=== PATIENT | female | born 2005 | race Caucasian/White ===

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

== ENCOUNTER 2023-05-22 15:49 | Emergency (ER) | payer MEDICAID, OTHER ==
[2023-05-22 16:29] VITALS: RESP 18; TEMP 98
[2023-05-22] MEDS ORDERED: Zofran 4 MG/2 ML VIAL IV ONE (16:32)
[2023-05-22] MEDS ORDERED: TORAdol 30 mg Injection IV ONE (16:32)
[2023-05-22] MEDS ORDERED: Sodium Chloride 0.9% 1000 ML 1,000 ML IV STA (16:32)
[2023-05-22 16:50] LABS: HCG URINE TEST NEGATIVE (NEGATIVE)
[2023-05-22] MEDS ORDERED: TORAdol 30 mg Injection ONE (16:50)
[2023-05-22] MEDS ORDERED: Zofran 4 MG/2 ML VIAL ONE (16:50)
[2023-05-22] MEDS ORDERED: Sodium Chloride 0.9% 1000 ML 1,000 ML ONE (16:50)
[2023-05-22 16:53] LABS: Absolute Neutrophil Ct (ANC) 7.87 x10^3/uL (1.4-6.9); BASOPHIL % 0.3 % (0.0-0.4); Basophil (Absolute #) 0.04 x10^3/uL (0-0.4); Eosinophil % 1.7 % (0.00-5.0); Eosinophil (Absolute #) 0.21 x10^3/uL (0-0.5); Hematocrit 41.7 % (35-47); Hemoglobin 14.6 g/dL (12.0-16.0); IMMATURE GRAN # 0.05 x10^3u/L (0.00-0.03); IMMATURE GRAN % 0.4 % (0.00-0.4); Lymphocyte (Absolute #) 3.31 x10^3/uL (1.0-4.6); Lymphocytes % 26.9 % (24.0-44.0); Mean Cell Volume 91.9 fL (78-100); Mean Corpuscular Hemoglobin 32.2 pg (26-32); Mean Platelet Volume 9.1 fL (7.5-11.0); Monocyte (Absolute #) 0.81 x10^3/uL (0.0-1.3); Monocytes % 6.6 % (0.0-12.0); Neutrophil % 64.1 % (36.0-66.0); Platelet Count 331 x10^3/uL (150-450); Red Blood Count 4.54 x10^6/uL (4.1-5.4); Red Cell Distribution Width 11.3 % (11.5-14.0); White Blood Count 12.3 x10^3/uL (4.0-10.5)
[2023-05-22 17:09] LABS: ALBUMIN 5.1 g/dL (3.5-5.0); ALKALINE PHOSPHATASE 86 U/L (38-126); ANION GAP 16.3 MEQ/L (5-15); BLOOD UREA NITROGEN 11 mg/dL (7-17); CHLORIDE 103 mmol/L (98-107); Calcium 9.8 mg/dL (8.4-10.2); Carbon Dioxide 25 mmol/L (22-30); Creatinine 1 0.66 mg/dL (0.52-1.04); EST GLOMERULAR FILTRATION RATE > 60.0 ML/MIN; Glucose 97 mg/dL (74-106); LIPASE 179 U/L (23-300); Potassium 3.8 mmol/L (3.5-5.1); SGOT/AST 38 U/L (14-36); SGPT/ALT 40 U/L (0-35); SODIUM 140 mmol/L (137-145); Total Protein 8.1 g/dL (6.3-8.2)
[2023-05-22 17:10] LABS: Appearance Cloudy (Clear); Bacteria Moderate /HPF (None Seen); Bilirubin Negative (Negative); Blood Negative (Negative); Epithelial Cells Moderate /HPF (None Seen); Glucose, Urine Negative (Negative); Hyaline Casts NONE SEEN /LPF (0-2); Ketones 15 (Negative); Leukocyte Esterase Negative (Negative); Nitrite Negative (Negative); Ph 6.5 (4.6-8.0); Protein,Urine Dip Negative (Negative); Specific Gravity 1.025 (1.005-1.030); Urobilinogen 0.2 mg/dL (0.2)
[2023-05-22 17:11] LABS: ADD URINE CULTURE? YES (NO)
--- NOTE | 2023-05-22 17:14 | XRAY ---
Indication: Lower abdomen pain and diarrhea 1 week. Multiple contiguous axial images obtained through the abdomen and pelvis without contrast. Comparison: None Lung bases clear. Heart not enlarged. Stomach distended with food/fluid. Noncontrasted stomach and bowel loops nonobstructed with normal appendix. No free fluid/air. Liver demonstrates mild diffuse fatty attenuation with incidental Marcin lobe. Remaining liver, gallbladder, pancreas, spleen, adrenal glands, kidneys, ureters, bladder, uterus, and aorta are unremarkable for noncontrast exam. Osseous structures intact. No ventral or inguinal hernias. Impression: Fatty liver. Remaining CT abdomen/pelvis without contrast exam is negative.
[2023-05-22 17:23] VITALS: PULSE 93
[2023-05-22] MEDS ORDERED: KEFLEX 500 MG PO ONE (17:55)
--- NOTE | 2023-05-22 18:00 | ERPHSYRPT ---
- History of Present Illness Time Seen by Provider: 05/22/23 15:55 Historian: patient, family Patient Subjective Stated Complaint: abdominal pain that comes and goes Triage Nursing Assessment: Patient reports intermittent lower abdominal pain which radiates down bilateral legs. Patient reports pain 5/10 at this time. Patient states her last bowel movement was yesterday and that it was loose and has been for the last week or so. Patient also states that her last menstrual period ended last week and that she had abnormally heavy bleeding and cramps. Patient states she does not know if she has ran a temperature but she has had sweats and chills. Physician History: 17 years old with history of schizoaffective disorder presented in the ER with chief complaint of generalized abdominal pain more in the lower abdomen with associated nausea and dry heaving. This has been going on for almost 1 week, off-and-on, moderate intensity cramping to sharp nature without any significant aggravating or relieving factors. Does report increased urinary frequency but no hematuria urgency or hesitancy reported. Denies any fever or chills. Allergies/Adverse Reactions: sulfamethoxazole [From Bactrim] Allergy (Verified 05/22/23 15:59) trimethoprim [From Bactrim] Allergy (Verified 05/22/23 15:59) Home Medications: Atomoxetine HCl [Strattera] 40 mg PO DAILY 04/17/18 [History] Cariprazine HCl [Vraylar] 6 mg PO HS 11/14/22 [History] PARoxetine HCL [Paxil] 40 mg PO HS 11/14/22 [History] Omeprazole 20 mg PO HS 05/22/23 [History] Trazodone HCl 50 mg [Desyrel 50 mg] 25 mg PO HS 05/22/23 [History] hydrOXYzine HCL [Hydroxyzine HCl] 10 mg PO Q4H PRN 05/22/23 [History] Hx Tetanus, Diphtheria Vaccination/Date Given: Yes Hx Influenza Vaccination/Date Given: No Hx Pneumococcal Vaccination/Date Given: No Travel Risk - International Travel Have you traveled outside of the country in past 3 weeks: No - Coronavirus Screening Are you exhibiting any of the following symptoms?: No Close contact with a COVID-19 positive Pt in past 14-21 Days: No - Vaccine Status Have you recieved a Covid-19 vaccination: Yes Cement Contractor: Unknown - Vaccination Dates Dates if Unknown: unknown - Review of Systems Constitutional: No Symptoms Eyes: No Symptoms Ears, Nose, & Throat: No Symptoms Respiratory: No Symptoms Cardiac: No Symptoms Abdominal/Gastrointestinal: Abdominal Pain, Nausea Musculoskeletal: No Symptoms Skin: No Symptoms Neurological: No Symptoms Hematologic/Lymphatic: No Symptoms Immunological/Allergic: No Symptoms - Past Medical History Pertinent Past Medical History: Yes Neurological History: Seizures ENT History: No Pertinent History Cardiac History: No Pertinent History Respiratory History: Asthma Endocrine Medical History: No Pertinent History Musculoskeletal History: No Pertinent History GI Medical History: No Pertinent History History: No Pertinent History Psycho-Social History: Anxiety, Attention Deficit Disorder, Bipolar, Depression Female Reproductive Disorders: No Pertinent History Other Medical History: social anxiety - Past Surgical History Past Surgical History: No Neuro Surgical History: No Pertinent History Cardiac: No Pertinent History Respiratory: No Pertinent History Gastrointestinal: No Pertinent History Genitourinary: No Pertinent History Musculoskeletal: No Pertinent History Female Surgical History: No Pertinent History - Social History Smoking Status: Never smoker Exposure to second hand smoke: Yes Drug Use: none Patient Lives Alone: No - Female History Hx Now: (UNKN) - Nursing Vital Signs Nursing Vital Signs: Initial Vital Signs Temperature 98.0 F 05/22/23 16:06 Pulse Rate 110 H 05/22/23 16:06 Respiratory Rate 18 05/22/23 16:06 Blood Pressure 142/105 05/22/23 16:06 O2 Sat by Pulse Oximetry 96 05/22/23 16:06 Pain Scale Pain Intensity 5 - Physical Exam General Appearance: no apparent distress Eye Exam: PERRL/EOMI Ears, Nose, Throat Exam: normal ENT inspection Neck Exam: normal inspection, full range of motion Respiratory Exam: normal breath sounds, lungs clear, respiratory distress Cardiovascular Exam: normal heart sounds, tachycardia Gastrointestinal/Abdomen Exam: soft, normal bowel sounds, tenderness (Lower abdomen to deep palpation bilaterally) Back Exam: normal inspection Extremity Exam: normal inspection, normal range of motion Neurologic Exam: alert, oriented x 3 Skin Exam: normal color SpO2 Interpretation: normal SpO2: 97 O2 Delivery: Room Air Ordered Tests: Active Orders 24 hr Category Date Time Status IV Insertion STAT Care 05/22/23 16:32 Active NPO (ED) STAT Care 05/22/23 16:32 Active ABDOMEN AND PELVIS W/0 CONTRAS [CT] Stat Exams 05/22/23 16:32 Completed CBC W DIFF Stat Lab 05/22/23 16:45 Completed CMP Stat Lab 05/22/23 16:45 Completed CULTURE,URINE Stat Lab 05/22/23 16:35 Received HCG QUALITATIVE, URINE Stat Lab 05/22/23 16:35 Completed LIPASE Stat Lab 05/22/23 16:45 Completed UA W/RFX UR CULTURE Stat Lab 05/22/23 16:35 Completed Medication Summary Discontinued Medications Generic Name Dose Route Start Last Admin Trade Name Charlie PRN Reason Stop Dose Admin Sodium Chloride 1,000 mls @ 999 mls/hr 05/22/23 16:32 05/22/23 16:52 Sodium Chloride 0.9% 1000 Ml IV 05/22/23 17:32 999 mls/hr .Q1H1M STA Administration Sodium Chloride Confirm 05/22/23 16:50 Sodium Chloride 0.9% 1000 Ml Administered 05/22/23 16:51 Dose 1,000 mls @ ud .ROUTE .STK-MED ONE Ketorolac Tromethamine 30 mg 05/22/23 16:32 05/22/23 16:52 Ketorolac Tromethamine 30 Mg/Ml Inj IV 05/22/23 16:33 30 mg STAT ONE Administration Ketorolac Tromethamine Confirm 05/22/23 16:50 Ketorolac Tromethamine 30 Mg/Ml Inj Administered 05/22/23 16:51 Dose 30 mg .ROUTE .STK-MED ONE Ondansetron HCl 4 mg 05/22/23 16:32 05/22/23 16:52 Ondansetron Hcl 4 Mg/2 Ml Vial IV 05/22/23 16:33 4 mg STAT ONE Administration Ondansetron HCl Confirm 05/22/23 16:50 Ondansetron Hcl 4 Mg/2 Ml Vial Administered 05/22/23 16:51 Dose 4 mg .ROUTE .STK-MED ONE Lab/Rad Data: Laboratory Result Diagrams 05/22/23 16:45 05/22/23 16:45 Laboratory Results 05/22/23 05/22/23 05/22/23 Range/Units 16:45 16:45 16:35 WBC 12.3 H (4.0-10.5) x10^3/uL RBC 4.54 (4.1-5.4) x10^6/uL Hgb 14.6 (12.0-16.0) g/dL Hct 41.7 (35-47) % MCV 91.9 (78-100) fL MCH 32.2 H (26-32) pg MCHC 35.0 (32-36) g/dL RDW 11.3 L (11.5-14.0) % Plt Count 331 (150-450) x10^3/uL MPV 9.1 (7.5-11.0) fL Gran % 64.1 (36.0-66.0) % Immature Gran % (Auto) 0.4 (0.00-0.4) % Nucleat RBC Rel Count 0.0 (0.00-0.1) % Eos # (Auto) 0.21 (0-0.5) x10^3/uL Immature Gran # (Auto) 0.05 H (0.00-0.03) x10^3u/L Absolute Lymphs (auto) 3.31 (1.0-4.6) x10^3/uL Absolute Monos (auto) 0.81 (0.0-1.3) x10^3/uL Absolute Nucleated RBC 0.00 (0.00-0.01) x10^3u/L Lymphocytes % 26.9 (24.0-44.0) % Monocytes % 6.6 (0.0-12.0) % Eosinophils % 1.7 (0.00-5.0) % Basophils % 0.3 (0.0-0.4) % Absolute Granulocytes 7.87 H (1.4-6.9) x10^3/uL Basophils # 0.04 (0-0.4) x10^3/uL Sodium 140 (137-145) mmol/L Potassium 3.8 (3.5-5.1) mmol/L Chloride 103 (98-107) mmol/L Carbon Dioxide 25 (22-30) mmol/L Anion Gap 16.3 H (5-15) MEQ/L BUN 11 (7-17) mg/dL Creatinine 0.66 (0.52-1.04) mg/dL Estimated GFR > 60.0 ML/MIN Glucose 97 (74-106) mg/dL Calcium 9.8 (8.4-10.2) mg/dL Total Bilirubin 0.30 (0.2-1.3) mg/dL AST 38 H (14-36) U/L ALT 40 H (0-35) U/L Alkaline Phosphatase 86 (38-126) U/L Serum Total Protein 8.1 (6.3-8.2) g/dL Albumin 5.1 H (3.5-5.0) g/dL Lipase 179 (23-300) U/L Urine Color (Yellow) Urine Appearance (Clear) Urine pH (4.6-8.0) Ur Specific [place] (1.005-1.030) Urine Protein (Negative) Urine Glucose (UA) (Negative) mg/dL Urine Ketones (Negative) Urine Blood (Negative) Urine Nitrite (Negative) Urine Bilirubin (Negative) Urine Urobilinogen (0.2) mg/dL Ur Leukocyte Esterase (Negative) U Hyaline Cast (Auto) (0-2) /LPF Urine Microscopic RBC (0-5) /HPF Urine Microscopic WBC (0-5) /HPF Ur Epithelial Cells (None Seen) /HPF Urine Bacteria (None Seen) /HPF Urine Culture Reflexed (NO) Urine HCG, Qual NEGATIVE (NEGATIVE) 05/22/23 Range/Units 16:35 WBC (4.0-10.5) x10^3/uL RBC (4.1-5.4) x10^6/uL Hgb (12.0-16.0) g/dL Hct (35-47) % MCV (78-100) fL MCH (26-32) pg MCHC (32-36) g/dL RDW (11.5-14.0) % Plt Count (150-450) x10^3/uL MPV (7.5-11.0) fL Gran % (36.0-66.0) % Immature Gran % (Auto) (0.00-0.4) % Nucleat RBC Rel Count (0.00-0.1) % Eos # (Auto) (0-0.5) x10^3/uL Immature Gran # (Auto) (0.00-0.03) x10^3u/L Absolute Lymphs (auto) (1.0-4.6) x10^3/uL Absolute Monos (auto) (0.0-1.3) x10^3/uL Absolute Nucleated RBC (0.00-0.01) x10^3u/L Lymphocytes % (24.0-44.0) % Monocytes % (0.0-12.0) % Eosinophils % (0.00-5.0) % Basophils % (0.0-0.4) % Absolute Granulocytes (1.4-6.9) x10^3/uL Basophils # (0-0.4) x10^3/uL Sodium (137-145) mmol/L Potassium (3.5-5.1) mmol/L Chloride (98-107) mmol/L Carbon Dioxide (22-30) mmol/L Anion Gap (5-15) MEQ/L BUN (7-17) mg/dL Creatinine (0.52-1.04) mg/dL Estimated GFR ML/MIN Glucose (74-106) mg/dL Calcium (8.4-10.2) mg/dL Total Bilirubin (0.2-1.3) mg/dL AST (14-36) U/L ALT (0-35) U/L Alkaline Phosphatase (38-126) U/L Serum Total Protein (6.3-8.2) g/dL Albumin (3.5-5.0) g/dL Lipase (23-300) U/L Urine Color Yellow (Yellow) Urine Appearance Cloudy A (Clear) Urine pH 6.5 (4.6-8.0) Ur Specific [place] 1.025 (1.005-1.030) Urine Protein Negative (Negative) Urine Glucose (UA) Negative (Negative) mg/dL Urine Ketones 15 A (Negative) Urine Blood Negative (Negative) Urine Nitrite Negative (Negative) Urine Bilirubin Negative (Negative) Urine Urobilinogen 0.2 (0.2) mg/dL Ur Leukocyte Esterase Negative (Negative) U Hyaline Cast (Auto) NONE SEEN (0-2) /LPF Urine Microscopic RBC 6-10 A (0-5) /HPF Urine Microscopic WBC 6-10 A (0-5) /HPF Ur Epithelial Cells Moderate A (None Seen) /HPF Urine Bacteria Moderate A (None Seen) /HPF Urine Culture Reflexed YES (NO) Urine HCG, Qual (NEGATIVE) - Progress Progress: improved Progress Note: 05/22/23 18:01 17 years old with history of schizoaffective disorder presented in the ER with chief complaint of generalized abdominal pain more in the lower abdomen with associated nausea and dry heaving. This has been going on for almost 1 week, off-and-on, moderate intensity cramping to sharp nature without any significant aggravating or relieving factors. Does report increased urinary frequency but no hematuria urgency or hesitancy reported. Denies any fever or chills. Patient has tenderness to deep palpation in bilateral lower abdomen with some tenderness suprapubic area. She is given fluids and Toradol for symptomatic relief, on reevaluation her pain is resolved. No peritoneal signs on repeated evaluation. Acute abdomen work-up showed mildly elevated white count of 12, fairly unremarkable chemistries. Mildly elevated transaminases and questionable UTI on the UA but patient does have symptoms, will treat with Keflex. CT abdomen pelvis is essentially unremarkable except for fatty liver. I do not know the exact cause of her pain, patient did report having loose stool for the last few days, could have some element of gastroenteritis causing her symptoms. Does not have any emergent findings on the work-up. She is being discharged with outpatient follow-up. Discussed signs symptoms of worsening needing return to ER which patient/mom seem understanding. Counseled pt/family regarding: lab results, diagnosis, need for follow-up, rad results Medical Desision Making - Independent Historian Additional History obtained from: Mother - Diagnostic Testing Diagnostic test were ordered, analyzed, and reviewed by me: Yes Radiological Interpretation: Reviewed by me - Risk of complications The pt has a mod risk of morbidity or mortality based on: Need for prescription drug management - Departure Departure Disposition: Home Clinical Impression: Lower abdominal pain, Acute UTI (urinary tract infection) Condition: Stable Critical Care Time: No Referrals: MAICO NEAL [Primary Care Provider] - Follow up with PCP 1 day Instructions: Severe Abdominal Pain, Adult (DC) Additional Instructions: Drink plenty of fluids to keep yourself well-hydrated. Follow-up with primary care for reevaluation. Return to ER for intractable abdominal pain/fever chills or if having difficulty urination Etc. Prescriptions: Cephalexin Mh 500 mg [Keflex 500 mg] 500 mg PO TID #21 cap
[2023-05-22] MEDS ORDERED: KEFLEX 500 MG ONE (18:06)
[2023-05-22 18:16] VITALS: BP 126/92; O2SAT 99
== END 2023-05-22 18:19 | disposition home or self-care (01) ==
LOC: ED 15:49
DX: N39.0 Urinary tract infection, site not specified (principal); R10.30 Lower abdominal pain, unspecified; R35.0 Frequency of micturition; Z79.899 Other long term (current) drug therapy
CPT/HCPCS: 36000; 36415; 74176; 80053; 81001; 81025; 83690; 85025; 87086; 96360; 96374; 96375; 99284; J1885; J2405; A9270-GY

== ENCOUNTER 2023-11-09 22:48 | Emergency (ER) | payer OTHER ==
[2023-11-09 23:43] VITALS: TEMP 98.1; O2SAT 98
--- NOTE | 2023-11-10 00:15 | ERPHSYRPT ---
- History of Present Illness Time Seen by Provider: 11/09/23 23:50 Patient Subjective Stated Complaint: I stuck a bandaid on the end of a paintbrush handle and was masterbating with it and the bandaid got stuck. It is scratching and hurting my pee hole. Triage Nursing Assessment: Vaginal area visually observed with verbal permission stated by pt with mother at bedside also per pt permission. Red circular spot to right labia. No bandaid visualized. Minimal white discharge present. Physician History: 17yo f w/ hx of schizophrenia, anxiety, developmental delay presents w/ mother for foreign body in vagina. Pt states that she was using a small paint brush handle with a small bandaid on the end to masturbate, pt states she was sticking the handle and bandaid into her urethra, believes the bandaid is now stuck in her urethra or vagina. Pt admits to some burning sensation in her pubic region. Mother reports pt has hx of masturbating w/ random objects. Pt currently denies cp, n/v/abdominal pain. Timing/Duration: today Activites at Onset: sexual activity Quality: burning Onset Location: vaginal, urethral Pain Radiation: none Severity of Pain-Max: mild Severity of Pain-Current: mild Prior abdominal problems: none Sexual intercourse history: other (masturbates frequently) Modifying Factors: Improves With: nothing Associated Symptoms: dysuria, No abdominal pain, No fever, No nausea, No loss of bladder control Allergies/Adverse Reactions: Sulfa (Sulfonamide Antibiotics) Allergy (Mild, Verified 11/09/23 23:24) Hives sulfamethoxazole [From Bactrim] Allergy (Mild, Verified 11/09/23 23:24) Hives trimethoprim [From Bactrim] Allergy (Mild, Verified 11/09/23 23:24) Hives Home Medications: Cariprazine HCl [Vraylar] 6 mg PO HS 11/14/22 [History] PARoxetine HCL [Paxil] 40 mg PO HS 11/14/22 [History] Omeprazole 20 mg PO HS 05/22/23 [History] Trazodone HCl 50 mg [Desyrel 50 mg] 25 mg PO HS 05/22/23 [History] hydrOXYzine HCL [Hydroxyzine HCl] 10 mg PO Q4H PRN PRN 05/22/23 [History] Viloxazine HCl [Qelbree] 200 mg PO QHS 11/09/23 [History] Hx Tetanus, Diphtheria Vaccination/Date Given: Yes Hx Influenza Vaccination/Date Given: No Hx Pneumococcal Vaccination/Date Given: No Travel Risk - International Travel Have you traveled outside of the country in past 3 weeks: No - Coronavirus Screening Are you exhibiting any of the following symptoms?: Yes Symptoms: Cough: New Onset, Shortness of Breath, Vomiting/Diarrhea, Headaches/Body Aches/Fatigue Close contact with a COVID-19 positive Pt in past 14-21 Days: No - Vaccine Status Have you recieved a Covid-19 vaccination: Yes Night Club Manager: Unknown - Vaccination Dates Dates if Unknown: unknown - Review of Systems Constitutional: No Symptoms Respiratory: No Symptoms Cardiac: No Symptoms Abdominal/Gastrointestinal: No Symptoms Genitourinary Symptoms: Dysuria, Urinary Retention - Past Medical History Pertinent Past Medical History: Yes Neurological History: Other ENT History: No Pertinent History Cardiac History: No Pertinent History Respiratory History: Asthma Endocrine Medical History: No Pertinent History Musculoskeletal History: No Pertinent History GI Medical History: No Pertinent History History: No Pertinent History Psycho-Social History: Anxiety, Attention Deficit Disorder, Bipolar, Depression, Panic Disorder, Other Female Reproductive Disorders: No Pertinent History Other Medical History: 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, OCD, schizophrenia - Past Surgical History Past Surgical History: No Neuro Surgical History: No Pertinent History Cardiac: No Pertinent History Respiratory: No Pertinent History Gastrointestinal: No Pertinent History Genitourinary: No Pertinent History Musculoskeletal: No Pertinent History Female Surgical History: No Pertinent History - Social History Smoking Status: Never smoker Exposure to second hand smoke: Yes Drug Use: none Patient Lives Alone: No - Female History Hx Now: No - Nursing Vital Signs Nursing Vital Signs: Initial Vital Signs Temperature 98.1 F 11/09/23 23:28 Pulse Rate 107 H 11/09/23 23:28 Respiratory Rate 18 11/09/23 23:28 Blood Pressure 118/101 11/09/23 23:28 O2 Sat by Pulse Oximetry 98 11/09/23 23:28 Pain Scale Pain Intensity 8 - Physical Exam General Appearance: no apparent distress Respiratory Exam: normal breath sounds, No respiratory distress Cardiovascular Exam: regular rate/rhythm Pelvic Exam: normal external exam, other (unable to locate bandaid on speculum exam, urethra showed no obvious foreign body) SpO2 Interpretation: normal SpO2: 98 O2 Delivery: Room Air - Progress Progress: improved Air Movement: fair Progress Note: 11/10/23 00:09 pt went to urinate in restroom into sterile hat, pt called us into bathroom and stated that she had "peed out the bandaid," there was a small bandage present in hat w/ urine. Pt reported feeling much better, states that she does have some irritation still. Urine was flushed down toilet plan to dc home w/ PCP f/u recommend checking UA as pt stated the bandaid was located in urethra mother and pt requesting to go home return to ED if pt starts having painful urination, fevers, johnny blood in urine Blood Culture(s) Obtained: No Antibiotics given: No Counseled pt/family regarding: need for follow-up Medical Desision Making - Risk of complications Minimal Risk: Minimal risk of morbidity - Departure Departure Disposition: Home Clinical Impression: Foreign body in urethra, initial encounter Condition: Stable Critical Care Time: No Referrals: MAICO NEAL [Primary Care Provider] - Follow up/PCP as directed Instructions: Vaginal Foreign Body Additional Instructions: plan to dc home w/ PCP f/u recommend checking UA as pt stated the bandaid was located in urethra mother and pt requesting to go home return to ED if pt starts having painful urination, fevers, johnny blood in urine
[2023-11-10 00:24] VITALS: BP 100/86; PULSE 95; RESP 20
== END 2023-11-10 00:31 | disposition home or self-care (01) ==
LOC: ED 22:48
DX: T19.0XXA Foreign body in urethra, initial encounter (principal); W44.8XXA Other foreign body entering into or through a natural orifice, initial encounter; R10.2 Pelvic and perineal pain; Z79.899 Other long term (current) drug therapy
CPT/HCPCS: 99281

== ENCOUNTER 2024-05-19 17:02 | Emergency (ER) | payer MEDICARE ==
[2024-05-19 17:13] VITALS: TEMP 97
--- NOTE | 2024-05-19 18:11 | ERPHSYRPT ---
- History of Present Illness Time Seen by Provider: 05/19/24 17:30 Source: patient Exam Limitations: no limitations Patient Subjective Stated Complaint: pt here for multi co's. mother called ems for pt not able to move her legs today. she states she went bowling today, she also states she has vomited today and cant move legs Triage Nursing Assessment: pt arrived per ems, alert, she is a poor historian, and her mom is her main caregiver, resp easy, skin w/d/p. pt able to move left leg Timing/Duration: today Severity: mild Associated Symptoms: denies symptoms Allergies/Adverse Reactions: Sulfa (Sulfonamide Antibiotics) Allergy (Mild, Verified 05/19/24 17:04) Hives sulfamethoxazole [From Bactrim] Allergy (Mild, Verified 05/19/24 17:04) Hives trimethoprim [From Bactrim] Allergy (Mild, Verified 05/19/24 17:04) Hives Home Medications: Cariprazine HCl [Vraylar] 6 mg PO HS 11/14/22 [History] Viloxazine HCl [Qelbree] 200 mg PO QHS 11/09/23 [History] Famotidine 20 mg [Pepcid 20 MG] 20 mg PO DAILY 05/19/24 [History] Fenofibrate 160 mg PO DAILY 05/19/24 [History] Guanfacine HCl [Guanfacine HCl ER] 1 mg PO DAILY 05/19/24 [History] Hx Tetanus, Diphtheria Vaccination/Date Given: Yes Hx Influenza Vaccination/Date Given: No Hx Pneumococcal Vaccination/Date Given: No Immunizations Up to Date: Yes Travel Risk - International Travel Have you traveled outside of the country in past 3 weeks: No - Emerging Infectious Disease Are you exhibiting symptoms associated with any current EIDs: No - Review of Systems Eyes: No Symptoms Ears, Nose, & Throat: No Symptoms Respiratory: No Symptoms Cardiac: No Symptoms Abdominal/Gastrointestinal: No Symptoms Genitourinary Symptoms: No Symptoms Musculoskeletal: No Symptoms Skin: No Symptoms Neurological: No Symptoms Psychological: No Symptoms Endocrine: No Symptoms Hematologic/Lymphatic: No Symptoms Immunological/Allergic: No Symptoms - Past Medical History Pertinent Past Medical History: Yes Neurological History: Other ENT History: No Pertinent History Cardiac History: No Pertinent History Respiratory History: Asthma Endocrine Medical History: No Pertinent History Musculoskeletal History: No Pertinent History GI Medical History: No Pertinent History History: No Pertinent History Psycho-Social History: Anxiety, Attention Deficit Disorder, Bipolar, Depression, Panic Disorder, Other Female Reproductive Disorders: No Pertinent History Other Medical History: 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, OCD, schizophrenia - Past Surgical History Past Surgical History: No Neuro Surgical History: No Pertinent History Cardiac: No Pertinent History Respiratory: No Pertinent History Gastrointestinal: No Pertinent History Genitourinary: No Pertinent History Musculoskeletal: No Pertinent History Female Surgical History: No Pertinent History - Female History Hx Last Menstrual Period: now Hx Now: No - Social History Smoking Status: Never smoker Exposure to second hand smoke: Yes Drug Use: none Patient Lives Alone: No - Social Determinants of Health Will the patient participate in the screening: Unable to obtain Comment: pt is mentally disabled - Nursing Vital Signs Nursing Vital Signs: Initial Vital Signs Temperature 97.0 F 05/19/24 17:13 Pulse Rate 110 H 05/19/24 17:13 Respiratory Rate 20 05/19/24 17:13 Blood Pressure 136/93 05/19/24 17:13 O2 Sat by Pulse Oximetry 99 05/19/24 17:13 Pain Scale Pain Intensity 4 - Physical Exam General Appearance: no apparent distress Eye Exam: PERRL/EOMI Ears, Nose, Throat Exam: normal ENT inspection Neck Exam: normal inspection Respiratory Exam: normal breath sounds Cardiovascular Exam: regular rate/rhythm Gastrointestinal/Abdomen Exam: soft, normal bowel sounds SpO2: 99 - Progress Progress Note: Patient was seen and evaluated for multiple complaints her mother is now in the department and thinks that these complaints might be related to her behavior and her poor diet. She was encouraged and informed of the need to eat and drink in small amounts. 05/19/24 18:09 and take her medications as prescribed. Mother feels comfortable taking the patient home she will be discharged home with [facility] Making - Discussion of managment Agreed on:: need for follow-up - Departure Departure Disposition: Home Clinical Impression: Nausea Condition: Good Critical Care Time: No Referrals: MAICO NEAL [Primary Care Provider] - Follow up/PCP as directed
[2024-05-19 18:19] VITALS: O2SAT 98
[2024-05-19 18:43] VITALS: BP 126/68; PULSE 70; RESP 18
== END 2024-05-19 18:43 | disposition home or self-care (01) ==
LOC: ED 17:02
DX: R11.0 Nausea (principal); Z79.899 Other long term (current) drug therapy
CPT/HCPCS: 99281

== ENCOUNTER 2025-01-11 15:36 | Emergency (ER) | payer MEDICARE ==
[2025-01-11 16:21] VITALS: PULSE 98; RESP 22; TEMP 98.6; O2SAT 98
[2025-01-11] MEDS ORDERED: Sodium Chloride 0.9% 1000 ML 1,000 ML ONE (16:41)
[2025-01-11] MEDS ORDERED: BENADRYL 50 MG/ML ONE (16:41)
[2025-01-11] MEDS ORDERED: Sterile H2O 10 ml IJ ONE (16:41)
[2025-01-11] MEDS ORDERED: solu-MEDROL ONE (16:41)
[2025-01-11] MEDS ORDERED: Pepcid 20 MG ONE (16:41)
[2025-01-11] MEDS: Sodium Chloride 0.9% 1000 ML 1,000 ML IV STA (16:44)
[2025-01-11] MEDS: solu-MEDROL 125 MG, Sterile H2O 10 ml 2 ML IV ONE (16:45)
[2025-01-11] MEDS: Pepcid 20 MG PO ONE (16:46)
[2025-01-11] MEDS: BENADRYL 12.5 MG/5 ML PO ONE (16:54)
[2025-01-11] MEDS ORDERED: BENADRYL 12.5 MG/5 ML ONE (16:54)
--- NOTE | 2025-01-11 17:04 | ERPHSYRPT ---
- History of Present Illness Time Seen by Provider: 01/11/25 15:50 Source: patient Exam Limitations: no limitations Patient Subjective Stated Complaint: Pt. states, "I got stung by a bee yesterday on my leg, then I woke up today and went to [employer] for lunch. I woke up this morning with these bumps on my arms and now they are on my face and my arms feel tingly. They itch and I am also dizzy and nauseas.' Triage Nursing Assessment: pt. ambulated to room without diff., a&ox3, skin p/w/d, slightly flushed in her face. Physician History: Patient is a 19-year-old female presents to emergency department for evaluation of an allergic reaction. Patient reports that she was stung by a bee on her left leg yesterday. Patient states since then her symptoms have progressively worsened. Patient complains of a papular pruritic rash on her arms and face. Patient she states she feels a little dizzy. Mild nausea. No vomiting. No fever. No chest pain or shortness of breath. Symptoms are mild to moderate in intensity. No specific worsening or improving factors. Patient voices no other complaints or concerns at this time. Portions of this note were created with voice recognition technology. There may be grammatical, spelling, punctuation or sound alike errors Timing/Duration: yesterday Severity: moderate Modifying Factors: Improves With: nothing Associated Symptoms: denies symptoms Allergies/Adverse Reactions: Sulfa (Sulfonamide Antibiotics) Allergy (Mild, Verified 05/19/24 17:04) Hives sulfamethoxazole [From Bactrim] Allergy (Mild, Verified 05/19/24 17:04) Hives trimethoprim [From Bactrim] Allergy (Mild, Verified 05/19/24 17:04) Hives Home Medications: Cariprazine HCl [Vraylar] 6 mg PO HS 11/14/22 [History] Viloxazine HCl [Qelbree] 200 mg PO QHS 11/09/23 [History] Famotidine 20 mg [Pepcid 20 MG] 20 mg PO DAILY 05/19/24 [History] Fenofibrate 160 mg PO DAILY 05/19/24 [History] Guanfacine HCl [Guanfacine HCl ER] 1 mg PO DAILY 05/19/24 [History] Hx Tetanus, Diphtheria Vaccination/Date Given: Yes Hx Influenza Vaccination/Date Given: No Hx Pneumococcal Vaccination/Date Given: No Immunizations Up to Date: No Travel Risk - International Travel Have you traveled outside of the country in past 3 weeks: No - Emerging Infectious Disease Are you exhibiting symptoms associated with any current EIDs: No - Review of Systems Constitutional: No Symptoms, No Fever, No Chills Eyes: No Symptoms Ears, Nose, & Throat: No Symptoms Respiratory: No Symptoms, No Cough, No Dyspnea Cardiac: No Symptoms, No Chest Pain, No Edema, No Syncope Abdominal/Gastrointestinal: No Symptoms, No Abdominal Pain, No Nausea, No Vomiting, No Diarrhea Genitourinary Symptoms: No Symptoms, No Dysuria Musculoskeletal: No Symptoms, No Back Pain, No Neck Pain Skin: No Symptoms, No Rash Neurological: No Symptoms, No Dizziness, No Focal Weakness, No Sensory Changes Psychological: No Symptoms Endocrine: No Symptoms Hematologic/Lymphatic: No Symptoms Immunological/Allergic: No Symptoms All Other Systems: Reviewed and Negative - Past Medical History Pertinent Past Medical History: Yes Neurological History: Other ENT History: No Pertinent History Cardiac History: No Pertinent History Respiratory History: Asthma Endocrine Medical History: No Pertinent History Musculoskeletal History: No Pertinent History GI Medical History: No Pertinent History History: No Pertinent History Psycho-Social History: Anxiety, Attention Deficit Disorder, Bipolar, Depression, Panic Disorder, Other Female Reproductive Disorders: No Pertinent History Other Medical History: 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, OCD, schizophrenia, - Past Surgical History Past Surgical History: Yes Neuro Surgical History: No Pertinent History Cardiac: No Pertinent History Respiratory: No Pertinent History Gastrointestinal: No Pertinent History Genitourinary: No Pertinent History Musculoskeletal: No Pertinent History Female Surgical History: No Pertinent History Other Surgical History: wisdom teeth removal - Female History Hx Last Menstrual Period: 1week ago Hx Now: No - Social History Smoking Status: Never smoker Exposure to second hand smoke: Yes Drug Use: none - Social Determinants of Health Will the patient participate in the screening: Declined to provide - Nursing Vital Signs Nursing Vital Signs: Initial Vital Signs Temperature 98.6 F 01/11/25 15:36 Pulse Rate 98 H 01/11/25 15:36 Respiratory Rate 22 01/11/25 15:36 Blood Pressure 133/92 01/11/25 15:36 O2 Sat by Pulse Oximetry 98 01/11/25 15:36 Pain Scale Pain Intensity 0 - Physical Exam General Appearance: no apparent distress, alert Eye Exam: PERRL/EOMI, eyes nml inspection Ears, Nose, Throat Exam: normal ENT inspection, pharynx normal, moist mucous membranes Neck Exam: normal inspection, non-tender, full range of motion Respiratory Exam: normal breath sounds, lungs clear, airway intact, No r espiratory distress Cardiovascular Exam: regular rate/rhythm, normal heart sounds, normal peripheral pulses Gastrointestinal/Abdomen Exam: soft, normal bowel sounds, No tenderness, No mass Back Exam: normal inspection, normal range of motion, No CVA tenderness, No vertebral tenderness Extremity Exam: normal inspection, normal range of motion, pelvis stable Neurologic Exam: alert, oriented x 3, cooperative, normal mood/affect, sensation nml, No motor deficits Skin Exam: normal color, warm, dry, No rash Lymphatic Exam: No adenopathy SpO2 Interpretation: normal SpO2: 98 O2 Delivery: Room Air - Course Nursing assessment & vital signs reviewed: Yes Ordered Tests: Active Orders 24 hr Category Date Time Status IV Insertion STAT Care 01/11/25 16:34 Active Medication Summary Generic Name Dose Route Start Last Admin Trade Name Freq PRN Reason Stop Dose Admin Sodium Chloride 1,000 mls @ 999 mls/hr 01/11/25 16:34 01/11/25 16:44 Sodium Chloride 0.9% 1000 Ml IV 01/11/25 17:34 999 mls/hr .Q1H1M STA Administration Discontinued Medications Generic Name Dose Route Start Last Admin Trade Name Freq PRN Reason Stop Dose Admin Methylprednisolone Sodium 0 mg 01/11/25 16:34 01/11/25 16:45 Succinate 125 mg/ Sterile IV 01/11/25 16:35 125 mg Water 2 ml STAT ONE Administration Diphenhydramine HCl 25 mg 01/11/25 16:34 01/11/25 16:54 Diphenhydramine Hcl 12.5 Mg/5 Ml Oral Solution PO 01/11/25 16:35 25 mg STAT ONE Administration Diphenhydramine HCl Confirm 01/11/25 16:41 Diphenhydramine Hcl 50 Mg/Ml Vial Administered 01/11/25 16:42 Dose 50 mg .ROUTE .STK-MED ONE Diphenhydramine HCl Confirm 01/11/25 16:54 Diphenhydramine Hcl 12.5 Mg/5 Ml Oral Solution Administered 01/11/25 16:55 Dose 2.5 mg .ROUTE .STK-MED ONE Famotidine 40 mg 01/11/25 16:34 01/11/25 16:46 Famotidine 20 Mg Tablet PO 01/11/25 16:35 40 mg STAT ONE Administration Famotidine Confirm 01/11/25 16:41 Famotidine 20 Mg Tablet Administered 01/11/25 16:42 Dose 40 mg .ROUTE .STK-MED ONE Sodium Chloride Confirm 01/11/25 16:41 Sodium Chloride 0.9% 1000 Ml Administered 01/11/25 16:42 Dose 1,000 mls @ ud .ROUTE .STK-MED ONE Methylprednisolone Sodium Succinate Confirm 01/11/25 16:41 Methylprednis Sod Succ 125 Mg/2 Ml Vial Administered 01/11/25 16:42 Dose 125 mg .ROUTE .STK-MED ONE Sterile Water Confirm 01/11/25 16:41 Water For Injection,Sterile 10 Ml Vial Administered 01/11/25 16:42 Dose 10 ml IJ .STK-MED ONE - Progress Progress: improved Progress Note: Patient is a 19-year-old female presents to emergency department for evaluation of a bee sting with subsequent allergic reaction. Patient complains of pruritus, a rash and dizziness. There was no respiratory compromise. Lungs were clear. The extremity were neurovascular tact distally. No open or draining lesions. Physical exam revealed a pruritic rash on face and upper extremities. Patient received IV fluids. Dizziness resolved. Patient received 125 mg Solu- Medrol, 20 mg Pepcid and Benadryl. Patient states her pruritus has resolved. The papular rash had significantly improved as well. Patient is no longer symptomatic. Patient's mother at bedside states that they are ready for discharge. A prescription for prednisone, Pepcid and EpiPen forwarded to patient's pharmacy. No indication for further workup at this time. Will discharge home. They agree to follow-up with primary care doctor within 48 hours for reevaluation. Patient/mother voiced no other complaints or concerns at this time. Portions of this note were created with voice recognition technology. There may be grammatical, spelling, punctuation or sound alike errors Complexity of problem addressed is moderate acute complicated. No critical care time. Complexity of data reviewed and analyzed is none. No specialized testing ordered. Diagnosis made based on history and physical exam. Risk of complication and or risk of morbidity/mortality of patient management is moderate. A prescription for Pepcid, EpiPen and prednisone forwarded to patient's pharmacy. Vital stable. Time spent to discharge patient is approximately 15 minutes. Plan of care established for shared decision making. No social determinants of health present to impede follow-up. Portions of this note were created with voice recognition technology. There may be grammatical, spelling, punctuation or sound alike errors 01/11/25 17:10 Counseled pt/family regarding: diagnosis, need for follow-up - Departure Departure Disposition: Home Clinical Impression: Allergic reaction, Bee sting, Pruritic rash Condition: Stable Critical Care Time: No Referrals: MAICO NEAL [Primary Care Provider, [facility]] - Follow up/PCP as directed Additional Instructions: Discharge/Care Plan BETY HUANG was seen on 01/11/25 in the Emergency Room. The patient was counseled regarding Diagnosis,Lab results, Imaging studies, need for follow up and when to return to the Emergency Room. Prescriptions given: Discharge Note I have spoken with the patient and/or caregivers. I have explained the patient's condition, diagnosis and treatment plan based on the information available to me at this time. I have answered the patient's and/or caregiver's questions and addressed any concerns. The patient and/or caregivers have as good understanding of the patient's diagnosis, condition and treatment plan as can be expected at this point. The vital signs have been stable. The patient's condition is stable and appropriate for discharge from the emergency department. The patient will pursue further outpatient evaluation with the primary care physician or other designated or consulting physician as outlined in the discharge instructions. The patient and/or caregivers are agreeable to this plan of care and follow-up instructions have been explained in detail. The patient and/or caregivers have received these instruction. The patient/and or caregivers are aware that any significant change in condition or worsening of symptoms should prompt an immediate return to this or the closest emergency department or call 911. Prescriptions: Prednisone 10 mg [Deltasone 10 mg] 40 mg PO DAILY 3 Days #12 tablet EPINEPHrine [Epipen 2-Harsh] 0.3 mg IJ DAILY #1 packet Famotidine 20 mg [Pepcid 20 MG] 40 mg PO DAILY 7 Days #14 tablet
[2025-01-11 17:16] VITALS: BP 130/80
== END 2025-01-11 17:29 | disposition home or self-care (01) ==
LOC: ED 15:36
DX: T63.441A Toxic effect of venom of bees, accidental (unintentional), initial encounter (principal); L29.9 Pruritus, unspecified; R42 Dizziness and giddiness; R11.0 Nausea; Z79.52 Long term (current) use of systemic steroids; Z79.899 Other long term (current) drug therapy
CPT/HCPCS: 96374; 96375; 99283; 99284; J1200; J2919; A9270-GY

== ENCOUNTER 2025-07-07 14:04 | Emergency (ER) | payer MEDICARE ==
[2025-07-07 14:12] VITALS: TEMP 97.3
--- NOTE | 2025-07-07 14:15 | ERPHSYRPT ---
- History of Present Illness Time Seen by Provider: 07/07/25 14:13 Historian: patient, family Physician History: Patient comes to the emergency room due to nausea vomiting going on for 48 hours cannot keep anything down including water. No fever no chills has some abdominal cramping complains of some blood in the urine denies any back pain no shortness of breath no chest pain Timing/Duration: day(s) Quality: aching Abdominal Pain Onset Location: generalized abdomen Associated Symptoms: nausea, vomiting Allergies/Adverse Reactions: Sulfa (Sulfonamide Antibiotics) Allergy (Mild, Verified 07/07/25 14:12) Hives sulfamethoxazole [From Bactrim] Allergy (Mild, Verified 07/07/25 14:12) Hives trimethoprim [From Bactrim] Allergy (Mild, Verified 07/07/25 14:12) Hives Home Medications: Cariprazine HCl [Vraylar] 6 mg PO HS 11/14/22 [History] Viloxazine HCl [Qelbree] 200 mg PO QHS 11/09/23 [History] Fenofibrate 160 mg PO DAILY 05/19/24 [History] Guanfacine HCl [Guanfacine HCl ER] 1 mg PO DAILY 05/19/24 [History] EPINEPHrine [Epipen 2-Harsh] 0.3 mg IJ DAILY PRN 07/07/25 [History] Fluoxetine HCl [Prozac] 10 mg PO DAILY 07/07/25 [History] Pantoprazole 20 mg [Protonix 20MG Tablet] 20 mg PO DAILY 07/07/25 [History] Hx Tetanus, Diphtheria Vaccination/Date Given: Yes Hx Influenza Vaccination/Date Given: No Hx Pneumococcal Vaccination/Date Given: No Travel Risk - Emerging Infectious Disease Are you exhibiting symptoms associated with any current EIDs: No - Review of Systems Constitutional: No Fever, No Chills Eyes: No Symptoms Respiratory: No Cough, No Dyspnea Cardiac: No Chest Pain, No Edema, No Syncope Abdominal/Gastrointestinal: No Abdominal Pain, No Nausea, No Vomiting, No Diarrhea Neurological: No Dizziness, No Focal Weakness, No Sensory Changes Psychological: No Symptoms - Past Medical History Pertinent Past Medical History: Yes Neurological History: Other ENT History: No Pertinent History Cardiac History: No Pertinent History Respiratory History: Asthma Endocrine Medical History: No Pertinent History Musculoskeletal History: No Pertinent History GI Medical History: No Pertinent History History: No Pertinent History Psycho-Social History: Anxiety, Attention Deficit Disorder, Bipolar, Depression, Panic Disorder, Other Female Reproductive Disorders: No Pertinent History Other Medical History: 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, OCD, schizophrenia, - Past Surgical History Past Surgical History: Yes Neuro Surgical History: No Pertinent History Cardiac: No Pertinent History Respiratory: No Pertinent History Gastrointestinal: No Pertinent History Genitourinary: No Pertinent History Musculoskeletal: No Pertinent History Female Surgical History: No Pertinent History Other Surgical History: wisdom teeth removal - Female History Hx Last Menstrual Period: 1week ago - Social History Smoking Status: Never smoker Exposure to second hand smoke: Yes Drug Use: none - Social Determinants of Health Will the patient participate in the screening: Declined to provide - Nursing Vital Signs Nursing Vital Signs: Initial Vital Signs Temperature 97.3 F 07/07/25 14:07 Pulse Rate 94 H 07/07/25 14:07 Respiratory Rate 17 07/07/25 14:07 Blood Pressure 172/102 07/07/25 14:07 O2 Sat by Pulse Oximetry 99 07/07/25 14:07 Pain Scale Pain Intensity 10 - Physical Exam General Appearance: no apparent distress, alert Eye Exam: PERRL/EOMI, eyes nml inspection Ears, Nose, Throat Exam: normal ENT inspection, pharynx normal, moist mucous membranes Respiratory Exam: normal breath sounds, lungs clear, No respiratory distress Cardiovascular Exam: regular rate/rhythm, normal heart sounds Gastrointestinal/Abdomen Exam: soft, No tenderness, No mass Neurologic Exam: alert, oriented x 3, cooperative, normal mood/affect, nml cerebellar function, sensation nml, No motor deficits Skin Exam: normal color, warm, dry SpO2 Interpretation: normal SpO2: 99 O2 Delivery: Room Air Ordered Tests: Active Orders 24 hr Category Date Time Status CBC W DIFF Stat Lab 07/07/25 14:45 Completed CMP Stat Lab 07/07/25 14:45 Completed CULTURE,URINE Stat Lab 07/07/25 16:01 Received LIPASE Stat Lab 07/07/25 14:45 Completed UA W/RFX UR CULTURE Stat Lab 07/07/25 16:01 Completed Medication Summary Generic Name Dose Route Start Last Admin Trade Name Freq PRN Reason Stop Dose Admin Ceftriaxone Sodium 1 gm in 100 mls @ 200 mls/hr 07/08/25 10:00 Rocephin 1 Gm / 100 Ml Nacl IV 08/07/25 09:59 Q24H10 MIC Discontinued Medications Generic Name Dose Route Start Last Admin Trade Name Charlie PRN Reason Stop Dose Admin Sodium Chloride 1,000 mls @ 999 mls/hr 07/07/25 14:11 07/07/25 15:46 Sodium Chloride 0.9% 1000 Ml IV 07/07/25 15:11 0 mls/hr .Q1H1M STA Infusion Sodium Chloride Confirm 07/07/25 14:19 Sodium Chloride 0.9% 1000 Ml Administered 07/07/25 14:20 Dose 1,000 mls @ ud .ROUTE .STK-MED ONE Ondansetron HCl 4 mg 07/07/25 14:11 07/07/25 14:45 Ondansetron Hcl 4 Mg/2 Ml Vial IV 07/07/25 14:12 4 mg STAT ONE Administration Ondansetron HCl Confirm 07/07/25 14:19 Ondansetron Hcl 4 Mg/2 Ml Vial Administered 07/07/25 14:20 Dose 4 mg .ROUTE .STK-MED ONE Lab/Rad Data: Laboratory Result Diagrams 07/07/25 14:45 07/07/25 14:45 Laboratory Results 07/07/25 07/07/25 07/07/25 Range/Units 16:01 14:45 14:45 WBC 8.9 (3.98-10.04) x10^3/uL RBC 4.59 (3.93-5.22) x10^6/uL Hgb 15.1 (11.2-15.7) g/dL Hct 42.2 (34.1-44.9) % MCV 91.9 (79.4-94.8) fL MCH 32.9 H (25.6-32.2) pg MCHC 35.8 H (32.2-35.5) g/dL RDW 11.6 L (11.7-14.4) % Plt Count 409 H (182-369) x10^3/uL MPV 9.4 (9.4-12.3) fL Gran % 58.7 (34.0-71.1) % Immature Gran % (Auto) 0.6 H (0.001-0.429) % Nucleat RBC Rel Count 0.0 (0.00-0.2) % Eos # (Auto) 0.20 (0.04-0.36) x10^3/uL Immature Gran # (Auto) 0.05 H (0.001-0.031) x10^3u/L Absolute Lymphs (auto) 2.94 (1.18-3.74) x10^3/uL Absolute Monos (auto) 0.47 (0.24-0.86) x10^3/uL Absolute Nucleated RBC 0.00 (0.00-0.012) x10^3u/L Lymphocytes % 32.9 (19.3-51.7) % Monocytes % 5.3 (4.7-12.5) % Eosinophils % 2.2 (0.7-5.8) % Basophils % 0.3 (0.1-1.2) % Absolute Granulocytes 5.24 (1.56-6.13) x10^3/uL Basophils # 0.03 (0.01-0.08) x10^3/uL Sodium 141 (135-145) mmol/L Potassium 4.2 (3.5-5.1) mmol/L Chloride 103 (98-107) mmol/L Carbon Dioxide 25 (22-30) mmol/L Anion Gap 17.9 H (5-15) MEQ/L BUN 22 H (7-17) mg/dL Creatinine 1.27 H (0.52-1.04) mg/dL Estimated GFR 61.7 ML/MIN Glucose 118 H (74-106) mg/dL Calcium 9.8 (8.4-10.2) mg/dL Total Bilirubin 0.30 (0.2-1.3) mg/dL AST 28 (14-36) U/L ALT 43 H (0-35) U/L Alkaline Phosphatase 45 (38-126) U/L Serum Total Protein 8.4 H (6.3-8.2) g/dL Albumin 5.2 H (3.5-5.0) g/dL Lipase 145 (23-300) U/L Urine Color Yellow (Yellow) Urine Appearance Clear (Clear) Urine pH 7.5 (4.6-8.0) Ur Specific [place] 1.020 (1.005-1.030) Urine Protein Negative (Negative) Urine Glucose (UA) Negative (Negative) mg/dL Urine Ketones Negative (Negative) Urine Blood Moderate A (Negative) Urine Nitrite Negative (Negative) Urine Bilirubin Negative (Negative) Urine Urobilinogen 0.2 (0.2) mg/dL Ur Leukocyte Esterase Large A (Negative) U Hyaline Cast (Auto) NONE SEEN (0-2) /LPF Urine Microscopic RBC 6-10 A (0-5) /HPF Urine Microscopic WBC >100 A (0-5) /HPF Ur Epithelial Cells None Seen (None Seen) /HPF Urine Bacteria Moderate A (None Seen) /HPF Urine Culture Reflexed YES (NO) - Progress Progress Note: 07/07/25 16:27 ThePatient has a urinary tract infection will be given 1 g of Rocephin here in the emergency room discharged on Macrobid.Patient has no sign symptoms related to a pyelonephritis at this time no fever no CVA tenderness - Departure Departure Disposition: Home Clinical Impression: Acute UTI (urinary tract infection) Condition: Good Critical Care Time: No Referrals: MAICO NEAL [Primary Care Provider, [facility]] - Follow up/PCP as directed Instructions: Urinary tract infections in adults Prescriptions: Nitrofurantoin Macro 100 mg [Macrobid 100MG Capsule] 100 mg PO BID #14 cap
[2025-07-07] MEDS ORDERED: Zofran 4 MG/2 ML VIAL ONE (14:19)
[2025-07-07] MEDS: Zofran 4 MG/2 ML VIAL IV ONE (14:45)
[2025-07-07 14:55] LABS: BASOPHIL % 0.3 % (0.1-1.2); Basophil (Absolute #) 0.03 x10^3/uL (0.01-0.08); Eosinophil (Absolute #) 0.20 x10^3/uL (0.04-0.36); Hematocrit 42.2 % (34.1-44.9); Hemoglobin 15.1 g/dL (11.2-15.7); IMMATURE GRAN # 0.05 x10^3u/L (0.001-0.031); IMMATURE GRAN % 0.6 % (0.001-0.429); Lymphocyte (Absolute #) 2.94 x10^3/uL (1.18-3.74); Mean Corpuscular Hemoglobin 32.9 pg (25.6-32.2); Mean Corpuscular Hgb Concent. 35.8 g/dL (32.2-35.5); Monocyte (Absolute #) 0.47 x10^3/uL (0.24-0.86); NUCLEATED RBC # 0.00 x10^3u/L (0.00-0.012); NUCLEATED RBC % 0.0 % (0.00-0.2); Platelet Count 409 x10^3/uL (182-369); Red Blood Count 4.59 x10^6/uL (3.93-5.22); White Blood Count 8.9 x10^3/uL (3.98-10.04)
[2025-07-07 15:09] LABS: Calcium 9.8 mg/dL (8.4-10.2); Carbon Dioxide 25.0 mmol/L (22-30); Creatinine 1 1.27 mg/dL (0.52-1.04); EST GLOMERULAR FILTRATION RATE 61.7 ML/MIN; Glucose 118.0 mg/dL (74-106); Potassium 4.2 mmol/L (3.5-5.1); SGOT/AST 28.0 U/L (14-36); SGPT/ALT 43.0 U/L (0-35); Total Protein 8.4 g/dL (6.3-8.2)
[2025-07-07 15:31] VITALS: RESP 15
[2025-07-07 16:20] LABS: Glucose, Urine Negative (Negative); Protein,Urine Dip Negative (Negative); WBC >100 /HPF (0-5)
[2025-07-07] MEDS: ROCEPHIN 1 GM / 100 ML NaCl 1 GM/100 ML IVPB IV SCH (16:27)
[2025-07-07] MEDS ORDERED: ROCEPHIN 1 GM / 100 ML NaCl 1 GM/100 ML IVPB IV ONE (16:27)
[2025-07-07 17:03] VITALS: BP 122/63; PULSE 77; O2SAT 98
== END 2025-07-07 17:13 | disposition home or self-care (01) ==
LOC: ED 14:04
DX: N39.0 Urinary tract infection, site not specified (principal); R11.2 Nausea with vomiting, unspecified; R10.84 Generalized abdominal pain; Z79.899 Other long term (current) drug therapy

== ENCOUNTER 2025-07-25 13:31 | Emergency (ER) | payer MEDICARE ==
[2025-07-25 14:01] VITALS: RESP 20; TEMP 98.7
[2025-07-25 14:02] VITALS: PULSE 93; O2SAT 98
[2025-07-25] MEDS ORDERED: Compazine 10 MG/2 ML ONE (14:06)
[2025-07-25] MEDS: Compazine 10 MG/2 ML IV ONE (14:08)
[2025-07-25 14:22] LABS: BASOPHIL % 0.3 % (0.1-1.2); Basophil (Absolute #) 0.02 x10^3/uL (0.01-0.08); Eosinophil (Absolute #) 0.16 x10^3/uL (0.04-0.36); Hematocrit 41.3 % (34.1-44.9); Hemoglobin 14.6 g/dL (11.2-15.7); IMMATURE GRAN # 0.01 x10^3u/L (0.001-0.031); IMMATURE GRAN % 0.1 % (0.001-0.429); Lymphocyte (Absolute #) 2.49 x10^3/uL (1.18-3.74); Mean Corpuscular Hemoglobin 32.9 pg (25.6-32.2); Mean Corpuscular Hgb Concent. 35.4 g/dL (32.2-35.5); Monocyte (Absolute #) 0.45 x10^3/uL (0.24-0.86); NUCLEATED RBC # 0.00 x10^3u/L (0.00-0.012); NUCLEATED RBC % 0.0 % (0.00-0.2); Platelet Count 301 x10^3/uL (182-369); Red Blood Count 4.44 x10^6/uL (3.93-5.22); White Blood Count 7.6 x10^3/uL (3.98-10.04)
[2025-07-25 14:42] LABS: ISTAT BUN 18 mg/dL (8-26); ISTAT CL 101 mmol/L (98-109); ISTAT CO2 27 mmol/L (24-29); ISTAT CREA 1.1 mg/dL (0.6-1.3); ISTAT GLUC 122 mg/dL (70-105); ISTAT K 3.6 mmol/L (3.5-4.9); ISTAT NA 141 mmol/L (138-146); ISTAT iCA 1.22 mmol/L (1.12-1.32)
--- NOTE | 2025-07-25 14:44 | ERPHSYRPT ---
- History of Present Illness Patient Subjective Stated Complaint: has had nausea for 3 weeks previously had ecoli but mom says its still going on Triage Nursing Assessment: patient brought in by mom says shes nausea and throwing up has blisters in her mouth dizzyness, nausea. patient is alert and orietnedx3, skin warm dry and intqact, patietn states shes been spotting last week no chance shes . mom concnerned because this is happening off nad on no matter what she eats. Physician History: Nausea, patient was diagnosed with a UTI 2 weeks ago, she seen her primary care doctor last week and was told that there were still some infection, the mother states that she was diagnosed with E. coli, the patient states she continues to have some nausea, she denies any dysuria, she had some abdominal tenderness Timing/Duration: week(s) (3) Activities at Onset: none Quality: cramping Abdominal Pain Onset Location: generalized abdomen Severity of Pain-Max: mild Severity of Pain-Current: mild Associated Symptoms: nausea Previous symptoms: same symptoms as today Allergies/Adverse Reactions: Sulfa (Sulfonamide Antibiotics) Allergy (Mild, Verified 07/25/25 14:03) Hives sulfamethoxazole [From Bactrim] Allergy (Mild, Verified 07/25/25 14:03) Hives trimethoprim [From Bactrim] Allergy (Mild, Verified 07/25/25 14:03) Hives Home Medications: Cariprazine HCl [Vraylar] 6 mg PO HS 11/14/22 [History] Viloxazine HCl [Qelbree] 200 mg PO QHS 11/09/23 [History] Fenofibrate 160 mg PO DAILY 05/19/24 [History] Guanfacine HCl [Guanfacine HCl ER] 1 mg PO DAILY 05/19/24 [History] EPINEPHrine [Epipen 2-Harsh] 0.3 mg IJ DAILY PRN 07/07/25 [History] Fluoxetine HCl [Prozac] 10 mg PO DAILY 07/07/25 [History] Pantoprazole 20 mg [Protonix 20MG Tablet] 20 mg PO DAILY 07/07/25 [History] Hx Tetanus, Diphtheria Vaccination/Date Given: Yes Hx Influenza Vaccination/Date Given: No Hx Pneumococcal Vaccination/Date Given: No Immunizations Up to Date: Yes Travel Risk - International Travel Have you traveled outside of the country in past 3 weeks: No - Emerging Infectious Disease Are you exhibiting symptoms associated with any current EIDs: No Symptoms: Abdominal Pain, Diarrhea, Vomitting - Past Medical History Pertinent Past Medical History: Yes Neurological History: Other ENT History: No Pertinent History Cardiac History: No Pertinent History Respiratory History: Asthma Endocrine Medical History: No Pertinent History Musculoskeletal History: No Pertinent History GI Medical History: No Pertinent History History: No Pertinent History Psycho-Social History: Anxiety, Attention Deficit Disorder, Bipolar, Depression, Panic Disorder, Other Female Reproductive Disorders: No Pertinent History Other Medical History: 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, OCD, schizophrenia, - Past Surgical History Past Surgical History: Yes Neuro Surgical History: No Pertinent History Cardiac: No Pertinent History Respiratory: No Pertinent History Gastrointestinal: No Pertinent History Genitourinary: No Pertinent History Musculoskeletal: No Pertinent History Female Surgical History: No Pertinent History Other Surgical History: wisdom teeth removal - Female History Hx Last Menstrual Period: 1week ago Hx Now: No - Social History Smoking Status: Never smoker Exposure to second hand smoke: Yes Drug Use: none - Social Determinants of Health Will the patient participate in the screening: Yes Do you worry about a steady place to live?: No Do you have any problems with any of the following?: No known problems In the past 12 months,have you had to go without utilities?: No Transportation Issues: No Has anyone in your support network made you feel unsafe?: No Have you or anyone in your house had to go w/o enough food: No - Nursing Vital Signs Nursing Vital Signs: Initial Vital Signs Temperature 98.7 F 07/25/25 13:31 Pulse Rate 86 07/25/25 13:31 Respiratory Rate 20 07/25/25 13:31 Blood Pressure 136/90 07/25/25 13:31 O2 Sat by Pulse Oximetry 99 07/25/25 13:31 Pain Scale Pain Intensity 10 - Physical Exam General Appearance: no apparent distress, alert, obese Eye Exam: PERRL/EOMI, eyes nml inspection Ears, Nose, Throat Exam: normal ENT inspection, pharynx normal, moist mucous membranes Neck Exam: normal inspection, non-tender, supple, full range of motion Respiratory Exam: normal breath sounds, lungs clear, No respiratory distress Cardiovascular Exam: regular rate/rhythm, normal heart sounds Gastrointestinal/Abdomen Exam: soft, tenderness (Mild diffuse), No mass, No rebound Back Exam: normal inspection, normal range of motion, No CVA tenderness, No vertebral tenderness Extremity Exam: normal inspection, normal range of motion, pelvis stable Neurologic Exam: alert, oriented x 3, cooperative, normal mood/affect, nml cerebellar function, sensation nml, No motor deficits Skin Exam: normal color, warm, dry SpO2 Interpretation: normal SpO2: 98 Ordered Tests: Active Orders 24 hr Category Date Time Status IV Insertion STAT Care 07/25/25 14:00 Active CBC W DIFF Stat Lab 07/25/25 14:15 Completed CMP Stat Lab 07/25/25 14:15 Completed CULTURE,URINE Stat Lab 07/25/25 15:14 Received Lactic Acid Stat Lab 07/25/25 14:00 Completed UA W/RFX UR CULTURE Stat Lab 07/25/25 15:14 Completed Medication Summary Discontinued Medications Generic Name Dose Route Start Last Admin Trade Name Freq PRN Reason Stop Dose Admin Sodium Chloride 1,000 mls @ 999 mls/hr 07/25/25 14:00 07/25/25 15:15 Sodium Chloride 0.9% 1000 Ml IV 07/25/25 15:00 Infused .Q1H1M STA Infusion Sodium Chloride Confirm 07/25/25 14:06 Sodium Chloride 0.9% 1000 Ml Administered 07/25/25 14:07 Dose 1,000 mls @ ud .ROUTE .STK-MED ONE Ceftriaxone Sodium 1 gm in 100 mls @ 200 mls/hr 07/25/25 15:41 07/25/25 15:50 Rocephin 1 Gm / 100 Ml Nacl IV 07/25/25 16:10 200 ml/hr STAT ONE 200 mls/hr Administration Ceftriaxone Sodium Confirm 07/25/25 15:49 Rocephin 1 Gm / 100 Ml Nacl Administered 07/25/25 15:50 Dose 1 gm in 100 mls @ ud IV .STK-MED ONE Prochlorperazine Edisylate 5 mg 07/25/25 14:00 07/25/25 14:08 Prochlorperazine Edisylate 10 Mg/2 Ml Vial IV 07/25/25 14:01 5 mg STAT ONE Administration Prochlorperazine Edisylate Confirm 07/25/25 14:06 Prochlorperazine Edisylate 10 Mg/2 Ml Vial Administered 07/25/25 14:07 Dose 10 mg .ROUTE .STK-MED ONE Lab/Rad Data: Laboratory Result Diagrams 07/25/25 14:15 07/25/25 14:15 Laboratory Results 07/25/25 07/25/25 07/25/25 Range/Units 15:14 14:15 14:15 WBC 7.6 (3.98-10.04) x10^3/uL RBC 4.44 (3.93-5.22) x10^6/uL Hgb 14.6 (11.2-15.7) g/dL Hct 41.3 (34.1-44.9) % MCV 93.0 (79.4-94.8) fL MCH 32.9 H (25.6-32.2) pg MCHC 35.4 (32.2-35.5) g/dL RDW 11.6 L (11.7-14.4) % Plt Count 301 (182-369) x10^3/uL MPV 8.9 L (9.4-12.3) fL Gran % 59.0 (34.0-71.1) % Immature Gran % (Auto) 0.1 (0.001-0.429) % Nucleat RBC Rel Count 0.0 (0.00-0.2) % Eos # (Auto) 0.16 (0.04-0.36) x10^3/uL Immature Gran # (Auto) 0.01 (0.001-0.031) x10^3u/L Absolute Lymphs (auto) 2.49 (1.18-3.74) x10^3/uL Absolute Monos (auto) 0.45 (0.24-0.86) x10^3/uL Absolute Nucleated RBC 0.00 (0.00-0.012) x10^3u/L Lymphocytes % 32.6 (19.3-51.7) % Monocytes % 5.9 (4.7-12.5) % Eosinophils % 2.1 (0.7-5.8) % Basophils % 0.3 (0.1-1.2) % Absolute Granulocytes 4.50 (1.56-6.13) x10^3/uL Basophils # 0.02 (0.01-0.08) x10^3/uL Sodium 137 (135-145) mmol/L Sodium Direct 141 (138-146) mmol/L Potassium 3.7 (3.5-5.1) mmol/L Chloride 101 (98-107) mmol/L Carbon Dioxide 27 (22-30) mmol/L Anion Gap 12.7 (5-15) MEQ/L BUN 16 (7-17) mg/dL Venous BUN 18 (8-26) mg/dL Creatinine 0.98 (0.52-1.04) mg/dL Estimated GFR 84.2 ML/MIN Glucose 119 H (74-106) mg/dL Lactic Acid (0.4-2.0) Calcium 9.8 (8.4-10.2) mg/dL Ionized Calcium 1.22 (1.12-1.32) mmol/L Total Bilirubin 0.30 (0.2-1.3) mg/dL AST 44 H (14-36) U/L ALT 47 H (0-35) U/L Alkaline Phosphatase 52 (38-126) U/L Serum Total Protein 8.1 (6.3-8.2) g/dL Albumin 5.1 H (3.5-5.0) g/dL Urine Color Yellow (Yellow) Urine Appearance Cloudy A (Clear) Urine pH 7.0 (4.6-8.0) Ur Specific Eckley 1.025 (1.005-1.030) Urine Protein Trace A (Negative) Urine Glucose (UA) Negative (Negative) mg/dL Urine Ketones Negative (Negative) Urine Blood Small A (Negative) Urine Nitrite Negative (Negative) Urine Bilirubin Negative (Negative) Urine Urobilinogen 0.2 (0.2) mg/dL Ur Leukocyte Esterase Negative (Negative) U Hyaline Cast (Auto) None Seen (0-2) /LPF Urine Microscopic RBC 0-2 (0-5) /HPF Urine Microscopic WBC 6-10 A (0-5) /HPF Ur Epithelial Cells Moderate A (None Seen) /HPF Urine Bacteria Moderate A (None Seen) /HPF Urine Culture Reflexed YES (NO) 07/25/25 Range/Units 14:00 WBC (3.98-10.04) x10^3/uL RBC (3.93-5.22) x10^6/uL Hgb (11.2-15.7) g/dL Hct (34.1-44.9) % MCV (79.4-94.8) fL MCH (25.6-32.2) pg MCHC (32.2-35.5) g/dL RDW (11.7-14.4) % Plt Count (182-369) x10^3/uL MPV (9.4-12.3) fL Gran % (34.0-71.1) % Immature Gran % (Auto) (0.001-0.429) % Nucleat RBC Rel Count (0.00-0.2) % Eos # (Auto) (0.04-0.36) x10^3/uL Immature Gran # (Auto) (0.001-0.031) x10^3u/L Absolute Lymphs (auto) (1.18-3.74) x10^3/uL Absolute Monos (auto) (0.24-0.86) x10^3/uL Absolute Nucleated RBC (0.00-0.012) x10^3u/L Lymphocytes % (19.3-51.7) % Monocytes % (4.7-12.5) % Eosinophils % (0.7-5.8) % Basophils % (0.1-1.2) % Absolute Granulocytes (1.56-6.13) x10^3/uL Basophils # (0.01-0.08) x10^3/uL Sodium (135-145) mmol/L Sodium Direct (138-146) mmol/L Potassium (3.5-5.1) mmol/L Chloride (98-107) mmol/L Carbon Dioxide (22-30) mmol/L Anion Gap (5-15) MEQ/L BUN (7-17) mg/dL Venous BUN (8-26) mg/dL Creatinine (0.52-1.04) mg/dL Estimated GFR ML/MIN Glucose (74-106) mg/dL Lactic Acid 1.9 (0.4-2.0) Calcium (8.4-10.2) mg/dL Ionized Calcium (1.12-1.32) mmol/L Total Bilirubin (0.2-1.3) mg/dL AST (14-36) U/L ALT (0-35) U/L Alkaline Phosphatase (38-126) U/L Serum Total Protein (6.3-8.2) g/dL Albumin (3.5-5.0) g/dL Urine Color (Yellow) Urine Appearance (Clear) Urine pH (4.6-8.0) Ur Specific Eckley (1.005-1.030) Urine Protein (Negative) Urine Glucose (UA) (Negative) mg/dL Urine Ketones (Negative) Urine Blood (Negative) Urine Nitrite (Negative) Urine Bilirubin (Negative) Urine Urobilinogen (0.2) mg/dL Ur Leukocyte Esterase (Negative) U Hyaline Cast (Auto) (0-2) /LPF Urine Microscopic RBC (0-5) /HPF Urine Microscopic WBC (0-5) /HPF Ur Epithelial Cells (None Seen) /HPF Urine Bacteria (None Seen) /HPF Urine Culture Reflexed (NO) - Progress Progress Note: 07/25/25 16:01 Discussed labs, patient was given Rocephin 1 g IV piggyback, she will black pickler her prescription that her primary care doctor wrote for her, she will follow-up with her primary care doctor in 2 weeks to have her urine rechecked - Departure Departure Disposition: Home Clinical Impression: Acute UTI (urinary tract infection) Condition: Stable Critical Care Time: No Referrals: MAICO NEAL [Primary Care Provider, [facility]] - Follow up other Referral Note: 2 weeks Instructions: Urinary tract infection in adults - ED discharge instructions Additional Instructions: Start your prescription tomorrow for 5 days Prescriptions: Ondansetron ODT 4 MG [Zofran Odt 4 mg] 4 mg PO Q6H PRN PRN #10 tablet PRN Reason: Vomiting
[2025-07-25 15:18] LABS: Calcium 9.8 mg/dL (8.4-10.2); Carbon Dioxide 27 mmol/L (22-30); Creatinine 1 0.98 mg/dL (0.52-1.04); EST GLOMERULAR FILTRATION RATE 84.2 ML/MIN; Glucose 119 mg/dL (74-106); Potassium 3.7 mmol/L (3.5-5.1); SGOT/AST 44 U/L (14-36); SGPT/ALT 47 U/L (0-35); Total Protein 8.1 g/dL (6.3-8.2)
[2025-07-25 15:30] LABS: Glucose, Urine Negative (Negative); Protein,Urine Dip Trace (Negative); RBC 0-2 /HPF (0-5)
[2025-07-25] MEDS ORDERED: ROCEPHIN 1 GM / 100 ML NaCl 1 GM/100 ML IVPB IV ONE (15:49)
[2025-07-25] MEDS: ROCEPHIN 1 GM / 100 ML NaCl 1 GM/100 ML IVPB IV ONE (15:50)
[2025-07-25 16:10] VITALS: BP 99/62
== END 2025-07-25 16:27 | disposition home or self-care (01) ==
LOC: ED 13:31
DX: N39.0 Urinary tract infection, site not specified (principal); R11.0 Nausea; Z79.899 Other long term (current) drug therapy